=== PATIENT | male | born 1980 | race Caucasian/White ===

== ENCOUNTER → 2016-09-11 | Outpatient (CLI) | payer BC ==
--- NOTE | 2016-09-11 14:26 | Diagnostic Imaging Report ---
INDICATION: Right-sided flank pain x1 week, history of stones. CT abdomen and pelvis obtained without IV contrast. COMPARISON: There is no prior study for comparison. FINDINGS: The visualized portions of the lung bases showed no infiltrates or masses. There is no pleural fluid or free intraperitoneal air. The liver shows diffuse low-density change compatible with fatty infiltration. Gallbladder is unremarkable. The spleen is normal in size and shows no focal lesions. The adrenals and pancreas appear normal. The kidneys bilaterally show no hydronephrosis or radiopaque calculi. There are no stones along the course of the ureters on either side. There is no retroperitoneal mass or adenopathy. There is no ascites or abnormal fluid collection. Visualized bowel loops including the appendix are unremarkable. IMPRESSION: No evidence of urinary tract stone or hydronephrosis. Normal appearance of the appendix. No acute process visualized. There is diffuse fatty infiltration of the liver. Report given to Dr. Shelton's nurse (Cecile) at 2:25 p.m. 09/11/2016/cb Dictated by: Dictated on workstation # [id number]
== END ==
LOC: RAD 13:00
PROVIDERS: ATTEND Family Medicine
DX: R10.84 Generalized abdominal pain (principal)
CPT/HCPCS: 74176